=== PATIENT | female | born 1950 | race Caucasian/White ===

== ENCOUNTER → 2024-01-06 11:21 | Outpatient (REF) | payer MEDICARE, OTHER, SELFPAY | LOC: HWWDC 11:21 | PROVIDERS: ATTENDING PHYSICIAN Obstetrics & Gynecology Gynecology; FAMILY PHYSICIAN Physician Assistant Medical | DX: Z12.31 Encounter for screening mammogram for malignant neoplasm of breast (principal) | CPT/HCPCS: 77063; 77067 ==

== ENCOUNTER → 2024-04-12 06:40 | Day surgery (SDC) | payer MEDICARE, OTHER, SELFPAY | LOC: GI 06:40 | PROVIDERS: ATTENDING PHYSICIAN Internal Medicine | DX: Z12.11 Encounter for screening for malignant neoplasm of colon (principal); K57.30 Diverticulosis of large intestine without perforation or abscess without bleeding; K56.2 Volvulus; K64.8 Other hemorrhoids | CPT/HCPCS: 45378 ==

== ENCOUNTER → 2024-06-09 11:21 | Outpatient (REF) | payer MEDICARE, OTHER, SELFPAY | LOC: RAD 11:21 | PROVIDERS: ATTENDING PHYSICIAN Student in an Organized Health Care Education/Training Program | DX: R05.9 Cough, unspecified (principal) | CPT/HCPCS: 36415; 71046 ==

== ENCOUNTER → 2025-02-05 09:36 | Outpatient (REF) | payer MEDICARE, OTHER, SELFPAY | LOC: HWWDC 09:36 | PROVIDERS: ATTENDING PHYSICIAN Internal Medicine Rheumatology; FAMILY PHYSICIAN Physician Assistant Medical; REFERRING PHYSICIAN Obstetrics & Gynecology Gynecology | DX: Z13.820 Encounter for screening for osteoporosis (principal); M81.0 Age-related osteoporosis without current pathological fracture; Z12.31 Encounter for screening mammogram for malignant neoplasm of breast | CPT/HCPCS: 77063; 77067; 77080 ==

== ENCOUNTER → 2025-05-08 10:51 | Outpatient (REF) | payer MEDICARE, OTHER, SELFPAY | LOC: HWRAD 10:51 | PROVIDERS: ATTENDING PHYSICIAN Internal Medicine Rheumatology; FAMILY PHYSICIAN Physician Assistant Medical | DX: M25.511 Pain in right shoulder (principal) | CPT/HCPCS: 73030 ==